=== PATIENT | male | born 1995 | race Caucasian/White ===

== ENCOUNTER 2021-03-06 09:14 | Emergency (ER) | payer BC, SELFPAY ==
[2021-03-06 09:53] VITALS: BP 136/93; PULSE 66; RESP 16; TEMP 36.6; O2SAT 100
== END 2021-03-06 11:08 | disposition left against medical advice (07) ==
LOC: EXPBETH 09:27
PROVIDERS: Emergency Provider Nurse Practitioner
DX: Z53.21 Procedure and treatment not carried out due to patient leaving prior to being seen by health care provider (principal)
CPT/HCPCS: 99199

== ENCOUNTER 2023-08-30 09:33 | Outpatient (CLI) | payer SELFPAY ==
[2023-08-30 12:10] LABS: Liquefaction Semen Complete in 30 min. (<30 minutes); Semen Color Opaque (Grey-opaque); Semen Immotility 10 %; Semen Morphology Result to Follow; Semen Non-Progressive Motility 10 %; Semen Progressive Motility 80 % (>32); Semen Total Motility 90 (>40% (PM+NP)); Semen Viscosity Not Increased (Not Increa.); Sperm Count 86.5 Mil/mL (60-150 million/mL)
[2023-09-06 23:24] LABS: Fructose, Semen 157 mg/dL (150-600)
== END 2023-08-30 09:34 | disposition home or self-care (01) ==
PROVIDERS: PCP Obstetrics & Gynecology; Visit Provider Obstetrics & Gynecology
DX: Z31.41 Encounter for fertility testing (principal)
CPT/HCPCS: 82757; 88160; 89320

== ENCOUNTER 2025-02-16 17:59 | Emergency (ER) | payer OTHER, SELFPAY ==
--- OUTSIDE RECORDS SUMMARY | 2011-12-21 03:40 | XMS_ITS | Continuity of Care Document ---
Author Organization [facility] Address [facility] [place] [address] Phone Care Team Providers Care Account Retention Representative Name Role Phone Hazel Padron MD Unavailable Unavailable Medications Medication Instructions Dosage Effective Dates (start - stop) Status Comments Depakote 250 mg Tab take 1 Tablet (250MG ) by oral route 2 times every day 250 MG - Active Depakote 500 mg Tab take 1 tablet (500MG ) by oral route 2 times every day 500 MG - Active Abilify 15 mg Tab take 1 tablet (15MG) by oral route every day 15 MG - Active Concerta 36 mg 24 hr Tab take 1 tablet (36MG) by oral route every day in the morning 36 MG - Active Synthroid 25 mcg Tab take 1 tablet (25MC G) by oral route every day 25 MCG - Active Procedures Procedure Date OFFICE/OUTPATIENT VISIT, EST OFFICE/OUTPATIENT VISIT, EST ROUTINE VENIPUNCTURE SPECIMEN HANDLING OFFICE/OUTPATIENT VISIT, EST Nurse Only HEP A VACC, PED/ADOL, 2 DOSE MENINGOCOCCAL VACCINE, IM TDAP VACCINE >7 IM FLU VACCINE, 3 YRS & >, IM OFFICE/OUTPATIENT VISIT, EST PREV VISIT, NEW, AGE 12-17 FLU VACCINE, 3 YRS & >, IM ROUTINE VENIPUNCTURE SPECIMEN HANDLING Advance Directives Directive Yes / No Effective Date File Name No Information Encounters Encounter Description Practice Location Reason(s) For Visit Diagnoses Date Provider Providers Copied on Encounter [facility], [address] [place] [address], [address] [place] [address] tel:[phone] [place] No Information 2 Vito Hazel. [address] [place] [address], [address] [place] [address]. tel:[phone] [facility], [address] [place] [address], [address] [place] [address], tel:[phone] [place] No Information 2 Vito Hazel. [address] [place] [address], [address] [place] [address]. tel:[phone] OFFICE/OUTPA TIENT VISIT, [facility], [address] [place] [address], [address] [place] [address], tel:[phone] [facility] Med check (chief complaint) Attention deficit disorder of childhood with hyperactivity 2 Se Martin. [address] [place] [address], [address] [place] [address]. tel:[phone] Referring Provider: Veronica Guillen, [address] [place] [address], [facility]. tel:[phone] [facility], [address] [place] [address], [address] [place] [address], tel:[phone] [place] No Information 2 Vito Hazel. [address] [place] [address], [address] [place] [address]. tel:[phone] OFFICE/OUTPA TIENT VISIT, [facility], [address] [place] [address], [address] [place] [address], tel:[phone] [place] adhd recheck (chief complaint) Bipolar disorder, unspecified 2 Vito Oliva. [address] [place] [address], [facility], . tel:[phone] Referring Provider: Hazel Padron, [address] [place] [address], [facility]. tel:[phone] [facility], [address] [place] [address], [address] [place] [address], tel:[phone] [facility] No Information 1 Se Martin. [address] [place] [address], [facility], . tel:[phone] [facility], [address] [place] [address], [address] [place] [address], tel:[phone] [place] No Information 1 Harlan Reyes. [address] [place] [address], [facility], . tel:[phone] Referring Provider: Eric Claros, [address] [place] [address], [facility]. tel:[phone] OFFICE/OUTPA TIENT VISIT, [facility], [address] [place] [address], [address] [place] [address], tel:[phone] [facility] med recheck (chief complaint) Acquired hypothyroidismBipo lar disorder, unspecified 1 Vito Oliva. [address] [place] [address], [facility], . tel:[phone] Referring Provider: Hazel Padron, [address] [place] [address], [facility]. tel:[phone] [facility], [address] [place] [address], [address] [place] [address], tel:[phone] [place] No Information 1 Reed Alberto. [address] [place] [address], [facility]. tel:[phone] Referring Provider: Dolly Mcbride, [address] [place] [address], [facility]. tel:[phone] OFFICE/OUTPA TIENT VISIT, EST [facility], [address] [place] [address], [address] [place] [address], tel:[phone] [facility] ADHD med recheck (chief complaint) Attention deficit disorder of childhood with hyperactivityBipol ar disorder, unspecifiedConduct disorder, adolescent onset typeAcquired hypothyroidism 1 Vito Oliva. [address] [place] [address], [facility], . tel:[phone] Referring Provider: Hazel Padron, [address] [place] [address], [facility]. tel:[phone] PREV VISIT, NEW, AGE 12-17 [facility], [address] [place] [address], [address] [place] [address], tel:[phone] [facility] No Information 0 Vito Oliva. [address] [place] [address], [facility], . tel:[phone] Referring Provider: Hazel Padron, [address] [place] [address], [facility]. tel:[phone] Family History Family Member Type Diagnosis Age At Onset No Information Immunizations Vaccine Date Status Comments flu (split) preservative todd e, 3 yrs or older administered Source: New Immuniza tion Record Hep A (ped/adol, 2 dose) administered Venessa rce: New Immunization Record Tdap administered Source: New Imm unization Record MCV4 (11-55 yrs) administered Source: New Immunization Record flu (split) (3 yrs or older) preservative free administered Source: Other Provid er MMR administered Source: Other P rovider polio, inactivated (IPV) administered Venessa rce: Other Provider DTaP administered Source: Other P rovider hep B (ped/adol, 3 dose) administered Venessa rce: Other Provider polio, inactivated (IPV) administered Venessa rce: Other Provider HIB - unspecified administered Source: Ot her Provider hep B (ped/adol, 3 dose) administered Venessa rce: Other Provider polio, inactivated (IPV) administered Venessa rce: Other Provider DTaP administered Source: Other P rovider MMR administered Source: Other P rovider polio, inactivated (IPV) administered Venessa rce: Other Provider HIB - unspecified administered Source: Ot her Provider DTaP administered Source: Other P rovider HIB - unspecified administered Source: Ot her Provider hep B (ped/adol, 3 dose) administered Venessa rce: Other Provider DTaP administered Source: Other P rovider Payers Payer name Insurance type Covered green party ID Authoriza tialix(s) DO NOT USE Anthem Medicaid MC [id number] Social History Type Description Quantity Date Captured Comments Sex Male Smoking Status No Information Chief Complaint And Reason For Visit No Information Reason For Referral Reason For Referral No Information History Of Present Illness Encounter Date Complaint History Of Prese nt Illness No Information Functional Status Date Functional Assessmen t No Information Instructions Date Instruction Additional Infor mation No Information Assessments Type Assessment Date No Information Patient Care Teams Name Effective Dates (start - stop) Status Members No Information
--- OUTSIDE RECORDS SUMMARY | 2011-12-21 03:40 | XMS_ITS | Continuity of Care Document ---
Author Organization [facility] Address [facility] [place] [address] Phone Care Team Providers Care Manufacturing Engineer Assembly Name Role Phone Hazel Padron MD Unavailable [...] Diagnoses Date Provider Providers Copied on Encounter [facility], [address] [place] [address], [address] [place] [address] tel:[phone] [place] No Information 2 Vito Hazel. [address] [place] [address], [address] [place] [address]. tel:[phone] [facility], [address] [place] [address], [address] [place] [address], tel:[phone] [place] No Information 2 Vito Hazel. [address] [place] [address], [address] [place] [address]. tel:[phone] OFFICE/OUTPA TIENT VISIT, [facility], [address] [place] [address], [address] [place] [address], tel:[phone] [facility] Med check (chief complaint) Attention deficit disorder of childhood with hyperactivity 2 Se Martin. [address] [place] [address], [address] [place] [address]. tel:[phone] Referring Provider: Veronica Guillen, [address] [place] [address], [facility]. tel:[phone] [facility], [address] [place] [address], [address] [place] [address], tel:[phone] [place] No Information 2 Vito Hazel. [address] [place] [address], [address] [place] [address]. tel:[phone] OFFICE/OUTPA TIENT VISIT, [facility], [address] [place] [address], [address] [place] [address], tel:[phone] [place] adhd recheck (chief complaint) Bipolar disorder, unspecified 2 Vito Oliva. [address] [place] [address], [facility], . tel:[phone] Referring Provider: Hazel Padron, [address] [place] [address], [facility]. tel:[phone] [facility], [address] [place] [address], [address] [place] [address], tel:[phone] [facility] No Information 1 Se Martin. [address] [place] [address], [facility], . tel:[phone] [facility], [address] [place] [address], [address] [place] [address], tel:[phone] [place] No Information 1 Harlan Reyes. [address] [place] [address], [facility], . tel:[phone] Referring Provider: Eric Claros, [address] [place] [address], [facility]. tel:[phone] OFFICE/OUTPA TIENT VISIT, [facility], [address] [place] [address], [address] [place] [address], tel:[phone] [facility] med recheck (chief complaint) Acquired hypothyroidismBipo lar disorder, unspecified 1 Vito Oliva. [address] [place] [address], [facility], . tel:[phone] Referring Provider: Hazel Padron, [address] [place] [address], [facility]. tel:[phone] [facility], [address] [place] [address], [address] [place] [address], tel:[phone] [place] No Information 1 Reed Alberto. [address] [place] [address], [facility]. tel:[phone] Referring Provider: Dolly Mcbride, [address] [place] [address], [facility]. tel:[phone] OFFICE/OUTPA TIENT VISIT, EST [facility], [address] [place] [address], [address] [place] [address], tel:[phone] [facility] ADHD med recheck (chief complaint) Attention deficit disorder of childhood with hyperactivityBipol ar disorder, unspecifiedConduct disorder, adolescent onset typeAcquired hypothyroidism 1 Vito Oliva. [address] [place] [address], [facility], . tel:[phone] Referring Provider: Hazel Padron, [address] [place] [address], [facility]. tel:[phone] PREV VISIT, NEW, AGE 12-17 [facility], [address] [place] [address], [address] [place] [address], tel:[phone] [facility] No Information 0 Vito Oliva. [address] [place] [address], [facility], . tel:[phone] Referring Provider: Hazel Padron, [address] [place] [address], [facility]. tel:[phone] Family History Family Member Type Diagnosis Age [...] rovider Payers Payer name Insurance type Covered libertarian ID Authoriza tialix(s) DO NOT USE Anthem Medicaid MC [id number] Social History Type Description Quantity Date [...]
--- OUTSIDE RECORDS SUMMARY | 2025-02-16 18:01 | XMS_ITS | Clinical Summary ---
Author Organization [facility] Address [address] [place] [address] Care Team Providers Care Greige Goods Inspector Name Role Phone No, Physician Primary Care Provider [phone] Allergies Active Allergy Reactions Criticality Noted Date Comments Lorazepam Agitation Low 07/12/2020 Medications mupirocin (BACTROBAN) 2 % ointmentIndica tions:Electric al burn of skin Apply topically 3 (three) times a day 22 g 1 Active cyclobenzaprin e (FLEXERIL) 10 mg tablet Take 1 tablet (10 mg total) by mouth 2 (two) times a day as needed for muscle spasms 20 tablet 2 Active benzonatate (TESSALON) 100 mg capsuleIndicat ions:Cough Take 1 capsule (100 mg total) by mouth every 8 (eight) hours 21 capsule 3 Active methocarbamoL (ROBAXIN) 500 mg tablet Take 1 tablet (500 mg total) by mouth 2 (two) times a day 20 tablet 3 Active ketorolac (TORADOL) 10 mg tablet Take 1 tablet (10 mg total) by mouth every 6 (six) hours as needed for pain 20 tablet 3 Active benztropine (COGENTIN) 0.5 mg tablet Take 1 tablet (0.5 mg total) by mouth 2 (two) times a day for 3 days 6 tablet 4 Active ibuprofen (ADVIL,MOTRIN) 800 mg tabletIndicati ons:Crushing injury of right wrist, initial encounter Take 1 tablet (800 mg total) by mouth 3 (three) times a day PRN pain and swelling. Take with food. Collaborating physician Armando Montes MD 21 tablet 5 Active amoxicillin-cl avulanate (AUGMENTIN) 875-125 mg per tablet Take 1 tablet by mouth every 12 (twelve) hours 6 tablet 5 Active Active Problems Problem Noted Date Diagnosed Date Crushing injury of right wrist 09/15/2024 Contusion of right wrist 09/15/2024 Immunizations Immunization Administration Dates Next Due Tdap 04/28/2022 Surgical History Surgery Date Site/Laterality Comments NO PAST SURGERIES Medical History Medical History Date Comments ADHD (attention deficit hyperactivity disorder) Bipolar 1 disorder (HCC) Chronic back pain Social History Tobacco Use Types Packs/Day Years Used Date Smoking Tobacco: Every Day Cigarettes Smokeless Tobacco: Never Alcohol Use Standard Drinks/Week Comments Not Currently 0 (1 standard drink = 0.6 oz pur e alcohol) Personal Safety Answer Date Recorded Have you ever been in or are you currently in a harmful physical or emotional relationship or is someone making you feel afraid or unsafe? Denies 11/10/2024 Sex and Gender Information Value Date Recorded Sex Assigned at Not on file Legal Sex Male 8:28 PM CDT Gender Identity Not on file Sexual Orientation Not on file Obstetrics History Last Filed Vital Signs Vital Sign Reading Time Taken Comments Blood Pressure 140/82 11/10/2024 11:44 AM CDT Pulse 66 11/10/2024 11:44 AM CDT Temperature 37.1 C (98.8 F) 11/10/2024 10:53 AM CDT Respiratory Rate 16 11/10/2024 11:44 AM CDT Oxygen Saturation 98% 11/10/2024 11:44 AM CDT Inhaled Oxygen Concentration - - Weight 71 kg (156 lb 8.4 oz) 11/10/2024 10:53 AM CDT Height 182.9 cm (6') 09/15/2024 12:50 PM CDT Body Mass Index 21.23 09/15/2024 12:50 PM CDT Plan of Treatment Health Maintenance Due Date Last Done Comments Depression Screening 1994 Hepatitis C Screening 1994 Varicella Vaccines (1 of 2 - 13+ 2-dose series) 2007 Regular Well Visit/Exam 18-64 2012 Pneumococcal vaccine <65 (1 of 2 - PCV) 2013 HPV Vaccines (1 - 3-dose SCD M series) 2021 Influenza Vaccine (#1) 2024 DTaP/Tdap/Td Vaccine (6 - Td or Tdap) 02/18/2034 02/19/2024, 04/28/2022, 08/02/1996, Additional history exists Hepatitis B Screening Completed 08/02/1996, 995 Insurance [facility] Care Teams Greige Goods Inspector Relationship Specialty Start Date End Date No, Physician PCP - General 09/15/24
--- OUTSIDE RECORDS SUMMARY | 2025-02-16 18:01 | XMS_ITS | Clinical Summary ---
Author Organization [facility] Address [address] [place] [address] Phone Care Team Providers Care Auxiliary Engineer Name Role Phone Provider, None Primary Care Provider Unavailabl e Allergies Active Allergy Reactions Criticality Noted Date Comments Lorazepam Other (see Comments) 02/19/2024 hyperactivity Medications No known medications Immunizations Immunization Administration Dates Next Due TDAP Vaccine 02/19/2024 Social History Tobacco Use Types Packs/Day Years Used Date Smoking Tobacco: Every Day Cigarettes Smokeless Tobacco: Never Tobacco Cessation:Ready to Q uit: Not Asked; Counseling Given: Not Answered Alcohol Use Standard Drinks/Week Comments Yes 0 (1 standard drink = 0.6 oz pur e alcohol) Sex and Gender Information Value Date Recorded Sex Assigned at Not on file Legal Sex Male 3:21 AM GAUGE INSPECTOR Gender Identity Not on file Sexual Orientation Not on file Last Filed Vital Signs Vital Sign Reading Time Taken Comments Blood Pressure 110/77 02/19/2024 8:45 PM GAUGE INSPECTOR Pulse 65 02/19/2024 9:00 PM GAUGE INSPECTOR Temperature 36.4 C (97.6 F) 02/19/2024 7:34 PM GAUGE INSPECTOR Respiratory Rate 18 02/19/2024 7:34 PM GAUGE INSPECTOR Oxygen Saturation 97% 02/19/2024 9:00 PM GAUGE INSPECTOR Inhaled Oxygen Concentration - - Weight 69 kg (152 lb 1.9 oz) 02/19/2024 7:34 PM GAUGE INSPECTOR Height 182.9 cm (6') 02/19/2024 7:34 PM GAUGE INSPECTOR Body Mass Index 20.63 02/19/2024 7:34 PM GAUGE INSPECTOR Plan of Treatment Not on file Care Teams Auxiliary Engineer Relationship Specialty Start Date End Date Provider, None [place] PCP - General 04/06/13
[2025-02-16 18:02] VITALS: BP 118/70; PULSE 60; RESP 18; TEMP 36.8; O2SAT 100
--- NOTE | 2025-02-16 18:18 | ED_ITS ---
HPI - Nausea/Vomiting/Diarrhea General Chief complaint: Nausea/Vomiting/Diarrhea Stated complaint: stomach acting up patient presents to the [facility] with complaints of waking up in the middle of the night vomiting and again this morning. Patient noted he did have fish at work yesterday unsure of anyone else who is sick with similar symptoms. Did not eat anything today and unable to go to work. Patient does report upper abdominal cramping and slight pain. No medications attempted for symptoms. Denies headache, dizziness, diarrhea, blood in vomit, sore throat. Related Data Home Medications ?Medication ?Instructions ?Recorded ?Confirmed ?Last Taken ?Type testosterone 200 mg implant pellet See Rx Instructions .Route .COMPLEX 03/06/21 03/06/21 Unknown History Allergies Allergy/AdvReac Type Severity Reaction Status Date / Time No Known Allergies Allergy Verified 03/06/21 10:07 Review of Systems Constitutional: Constitutional: Reports as per HPI, Denies chills, Denies fatigue, Denies fever(s) and Denies weakness Eyes: Eyes: Reports no additional eye complaints ENT: Reports as per HPI, Denies vertigo, Denies dizziness, Denies nasal congestion and Denies sore throat Cardiovascular: Cardiovascular: Reports no additional cardiovascular complaints Respiratory: Respiratory: Reports no additional respiratory complaints Gastrointestinal: Gastrointestinal: Reports as per HPI, Reports abdominal pain, Denies bloating, Denies diarrhea, Reports nausea and Reports vomiting Genitourinary: Genitourinary: Reports no additional male genitourinary complaints Musculoskeletal: Musculoskeletal: Reports as per HPI, Denies back pain and Denies myalgias Integumentary/Breasts: Skin/Breast: Reports as per HPI, Denies erythema and Denies rash Neurologic: Reports as per HPI, Denies vertigo, Denies dizziness, Denies focal weakness, Denies numbness and Denies weakness Psychiatric: Psychiatric: Reports no additional psychiatric complaints Endocrine: Endocrine: Reports no additional endocrine complaints Hematologic/Lymphatic: Hematologic/Lymphatic: Reports no additional hematologic/lymphatic complaints Allergic/Immunologic: Allergic/Immunologic: Reports no additional allergic/immunologic complaints Exam Const: General: healthy appearing and no acute distress Nutritional Appearance: well nourished Orientation/consciousness: patient oriented x3 Limitations: no limitations Resp: Effort & Inspection: normal respiratory effort Auscultation: clear to auscultation bilaterally Cardio: Rate: regular rate Rhythm: regular rhythm GI: Inspection: non-distended GI Palp: Yes Soft to palpation, No Tenderness to palpation present (GI), No Guarding due to palpation present (GI), No Rigid due to palpation, No Hernia present and No Rebound tenderness present Auscultation: normal bowel sounds Skin: General skin exam: normal color Rashes: no rashes Wounds: no wounds Neuro: General: patient oriented x3 Speech: normal speech Gait exam (Neuro): Normal gait present Psych: Mental Status: mental status grossly normal Affect: normal affect Attitude: cooperative Course Course Level of Care: Express Care Visit Vital Signs Vital signs: Vital Signs Temperature 98.2 F 02/16/25 18:02 Pulse Rate 60 02/16/25 18:02 Respiratory Rate 18 02/16/25 18:02 Blood Pressure 118/70 02/16/25 18:02 Pulse Oximetry 100 02/16/25 18:02 Oxygen Delivery Room Air 02/16/25 18:02 Temperature 98.2 F 02/16/25 18:02 Pulse Rate 60 02/16/25 18:02 Respiratory Rate 18 02/16/25 18:02 Blood Pressure 118/70 02/16/25 18:02 Pulse Oximetry 100 02/16/25 18:02 Oxygen Delivery Room Air 02/16/25 18:02 MDM - Nausea/Vomiting/Diarrhea MDM Narrative Medical decision making narrative: The patient was evaluated by myself in the express care. History is obtained from patient who is an independent historian and physical exam was performed. Available medical records were reviewed at this time. Exam findings show no acute concerns or changes; patient is non-toxic appearing and is in no distress. Patient is appropriate for outpatient treatment and follow-up. I have evaluated and discussed social determinants of health with the patient that could potentially impact subsequent diagnosis and treatment plans. Differential diagnosis and treatment plan were discussed with the patient. Patient agrees with discussion and after shared medical decision making agrees with plan of care. All questions were answered to the patient's satisfaction. Differential Diagnosis Differential diagnosis: Likely traveler's diarrhea, food poisoning, ga stroenteritis, clostridium difficile infection and dehydration Medical Records Attestation: I reviewed the patient's medical records. Discharge Plan Discharge Clinical Impression: Gastroenteritis Patient Disposition: Home Condition: Stable Instructions: Antibiotic Form, Gastroenteritis (ED), Acute Nausea and Vomiting (ED) Additional Instructions: slowly increase food as tolerated. Use the Zofran as needed for nausea and vomiting may also use Pepcid, Pepto-Bismol as needed for symptoms. if you began to have significant abdominal pain, fevers, blood in vomit, or unable to keep food down due to the emergency room for further evaluation of symptoms Patient Language: Citizen Of [place] Prescriptions: New ondansetron 4 mg tablet,disintegrating 4 mg PO Q8H PRN (Reason: nausea and vomiting) Qty: 20 0RF No Action testosterone 200 mg Pellet See Rx Instructions .ROUTE .COMPLEX Rx Instructions: unknown Follow-up/Referrals: PHYSICIAN,SCRIPT COORDINATOR [Primary Care Provider, Internal Medicine] Stand Alone Forms: Work/School Release IP Time of Disposition: 18:20
== END 2025-02-16 18:24 | disposition home or self-care (01) ==
PROVIDERS: Emergency Provider Nurse Practitioner Family
DX: K52.9 Noninfective gastroenteritis and colitis, unspecified (principal)
CPT/HCPCS: 99203; G0463